=== PATIENT | female | born 1990 | race Hispanic/Latino ===

== ENCOUNTER 2024-09-19 19:52 | Day surgery (SDC) | payer OTHER ==
[2024-09-19] MEDS ORDERED: hydrALAZINE 20 MG/ML VIAL SLOW IVP PRN (20:49)
[2024-09-19] MEDS ORDERED: Lactated Ringer's 1,000 ML IV SCH (21:00)
[2024-09-19 21:35] LABS: Bilirubin Neg (Negative); Blood, Urine Negative (Negative); Clarity Clear (Clear); Glucose, Urine (Dipstick) Normal (Negative); Ketone, Urine Negative (Negative); Leukocyte Negative (Negative); Nitrite Negative (Negative); Protein, Urine (Dipstick) Negative (Neg-Trace); Urobilinogen Normal mg/dL (Less than 2); pH, Urine 6.5 (5.0-9.0)
[2024-09-19 21:57] LABS: CAUTI Indications for Culture Pregnancy; RBC/HPF None Seen HPF (0-3); Squamous Epithelial 0-3 HPF (0-3); WBC/HPF 0-3 HPF (0-3)
[2024-09-19 21:58] LABS: Bacteria/HPF Rare-Few HPF (None Seen)
[2024-09-19 22:11] VITALS: BMI 30.9
[2024-09-19] MEDS: Morphine 4 MG/ML VIAL SLOW IVP SCH (22:25)
== END 2024-09-19 23:45 | disposition home or self-care (01) ==
LOC: CSHLD/OP 19:52
PROVIDERS: ATTEND Family Medicine
DX: O99.891 Other specified diseases and conditions complicating pregnancy (principal); R10.9 Unspecified abdominal pain; R10.30 Lower abdominal pain, unspecified; R30.0 Dysuria; Z3A.24 24 weeks gestation of pregnancy; Z79.899 Other long term (current) drug therapy; Z53.21 Procedure and treatment not carried out due to patient leaving prior to being seen by health care provider
CPT/HCPCS: 76770; 81001; 87077; 87086; 96360; 99284; J2270

== ENCOUNTER 2024-11-20 17:41 | Day surgery (SDC) | payer OTHER ==
[2024-11-20] MEDS ORDERED: hydrALAZINE 20 MG/ML VIAL SLOW IVP PRN (18:47)
[2024-11-20 19:59] LABS: Bilirubin Neg (Negative); Blood, Urine Negative (Negative); Clarity Clear (Clear); Glucose, Urine (Dipstick) Normal (Negative); Ketone, Urine Negative (Negative); Leukocyte Negative (Negative); Nitrite Negative (Negative); Protein, Urine (Dipstick) 15 mg/dl (Neg-Trace)
[2024-11-20 20:23] LABS: Bacteria/HPF None Seen HPF (None Seen); CAUTI Indications for Culture Pregnancy; RBC/HPF None Seen HPF (0-3); Squamous Epithelial 0-3 HPF (0-3); WBC/HPF None Seen HPF (0-3)
[2024-11-20 20:24] LABS: Urine Culture Reflex Yes Yes
== END 2024-11-20 20:49 | disposition home or self-care (01) ==
LOC: CSHLD/OP 17:41
PROVIDERS: ATTEND Family Medicine
DX: O36.8130 Decreased fetal movements, third trimester, not applicable or unspecified (principal); O99.891 Other specified diseases and conditions complicating pregnancy; R10.30 Lower abdominal pain, unspecified; R03.0 Elevated blood-pressure reading, without diagnosis of hypertension; Z3A.33 33 weeks gestation of pregnancy; Z88.0 Allergy status to penicillin
CPT/HCPCS: 76819; 81001; 87086; 99283

== ENCOUNTER 2024-12-11 21:39 | Inpatient (IN) | payer OTHER ==
[2024-12-11 22:00] VITALS: BMI 25.0
[2024-12-11 22:26] LABS: Fetal Membranes Rupture RUPTURE DETECTED (No Rupture)
[2024-12-11] MEDS ORDERED: Tranexamic Acid 1,000 MG/10 ML VIAL IVP PRN (23:03)
[2024-12-11] MEDS ORDERED: Lidocaine 1% (PF) 30 ML VIAL SC PRN (23:03)
[2024-12-11] MEDS ORDERED: fentaNYL 50 mcg/mL 1 mL Vial SLOW IVP PRN (23:03)
[2024-12-11] MEDS ORDERED: Misoprostol 200 MCG TAB PR PRN (23:03)
[2024-12-11] MEDS ORDERED: Ibuprofen 800 MG TAB PO PRN (23:03)
[2024-12-11] MEDS ORDERED: Diphenoxylate HCl/Atropine Tablet PO PRN (23:03)
[2024-12-11] MEDS ORDERED: Promethazine HCl 25 MG/ML VIAL IM PRN (23:03)
[2024-12-11] MEDS ORDERED: Carboprost 250 MCG/ML AMP IM PRN (23:03)
[2024-12-11] MEDS ORDERED: HYDROcodone/Acetaminophen 5/325 mg Tablet PO PRN (23:03)
[2024-12-11] MEDS ORDERED: Oxytocin 30 units/NS 500 ML 500 ML IV SCH ×3 (23:15)
[2024-12-12 00:03] LABS: Hematocrit 34.2 % (34.9-44.5); Hemoglobin 11.7 g/dL (12.0-15.5); Mean Corpuscular HGB CONC 34.2 g/dL (32.0-36.0); Mean Corpuscular Hemoglobin 29.4 pg (27.0-33.0); Mean Corpuscular Volume 85.9 fL (81.6-98.3); Mean Platelet Volume 11.1 fL (7.4-10.4); Platelet Count 185 10x3/uL (150-450); RBC Distribution Width 11.7 % (11.5-14.5); Red Blood Cell (RBC) Count 3.98 10x6/uL (3.90-5.03); White Blood Cell (WBC) Count 11.16 10x3/uL (3.5-10.5)
[2024-12-12 00:20] LABS: ALT (SGPT) Less than 4 U/L (Less than 34); AST (SGOT) 14 U/L (11-34); Albumin 2.5 g/dL (3.1-4.5); Alkaline Phosphatase 175 U/L (40-110); Anion Gap 12 mmol/L (10-20); BUN (Urea Nitrogen) 11 mg/dL (7.0-18.7); Bilirubin, Total 0.2 mg/dL (0.3-1.2); Calc. Creatinine Clearance 169 mL/min (70-130); Calcium 8.2 mg/dL (7.8-10.44); Carbon Dioxide 17 mmol/L (22-29); Chloride 113 mmol/L (98-107); Estimated GFR 124; Globulin 3.4 g/dL (2.4-3.5); Glucose 89 mg/dL (70-105); Protein, Total 5.9 g/dL (6.0-8.3); Sodium 138 mmol/L (136-145)
[2024-12-12 00:38] LABS: Syphilis Antibody Nonreactive (Nonreactive); Syphilis Antibody Index 0.11 S/CO (<1.00 Non-Reactive)
[2024-12-12 00:39] LABS: HBsAg Index 0.16 S/CO (0-0.99); Hep B Surf Ag - L&D Non-Reactive S/CO (NonReactive)
[2024-12-12] MEDS: hydrALAZINE 20 MG/ML VIAL SLOW IVP PRN (00:45)
[2024-12-12] MEDS: Lactated Ringer's 1,000 ML IV SCH (00:46)
[2024-12-12] MEDS: Magnesium Sulfate 20 gm/500 ml 20 GM/500 ML BAG ONE (00:53)
[2024-12-12] MEDS ORDERED: Magnesium Sulfate 20 gm/500 ml 4 GM/100 ML BAG IVPB SCH (01:15)
[2024-12-12] MEDS ORDERED: hydrALAZINE 20 MG/ML VIAL SLOW IVP PRN ×2 (01:15)
[2024-12-12] MEDS ORDERED: Calcium Gluc 4.6 MEQ/10 ML (100 MG/ML) SLOW IVP PRN (01:15)
[2024-12-12] MEDS ORDERED: Labetalol HCl 100 MG/20 ML VIAL SLOW IVP PRN ×2 (01:15)
[2024-12-12] MEDS ORDERED: Lorazepam 2 MG/ML VIAL SLOW IVP PRN (01:15)
[2024-12-12] MEDS: Labetalol HCl 100 MG TAB PO SCH (01:55)
[2024-12-12] MEDS: Misoprostol 100 MCG TAB PO SCH (01:56)
[2024-12-12] MEDS: Magnesium Sulfate 20 gm/500 ml 20 GM/500 ML BAG IVPB SCH (09:17)
[2024-12-12] MEDS: Ondansetron PF 4 MG/2 ML Vial IVP PRN (09:36)
[2024-12-12] MEDS: Acetaminophen 500 MG TAB PO PRN (09:43)
[2024-12-12] MEDS ORDERED: Clindamycin/D5W 900 MG in Premix 1 BAG IVPB SCH (17:30)
[2024-12-12] MEDS ORDERED: Famotidine/PF 20 mg/2ml Vial SLOW IVP PRN (17:30)
[2024-12-12] MEDS ORDERED: Azithromycin 500 MG in Sodium Chloride 0.9% 250 ML 250 ML IVPB SCH (17:30)
[2024-12-12] MEDS ORDERED: Bicitra 30 ML UDCUP PO PRN (17:30)
[2024-12-12] MEDS ORDERED: Moisturizing Cream (Eucerin) 113 GM JAR TOP PRN (19:00)
[2024-12-12] MEDS ORDERED: fentaNYL 50 mcg/mL 1 mL Vial SLOW IVP PRN (19:00)
[2024-12-12] MEDS ORDERED: diphenhydrAMINE 50 MG/ML VIAL IVP PRN (19:00)
[2024-12-12] MEDS ORDERED: Naloxone HCl 0.4 mg/ml Vial IVP PRN ×2 (19:00)
[2024-12-12] MEDS ORDERED: Promethazine HCl 25 MG/ML VIAL IM PRN (19:00)
[2024-12-12] MEDS ORDERED: Morphine 4 MG/ML VIAL SLOW IVP PRN (19:00)
[2024-12-12] MEDS ORDERED: Ketorolac Tromethamine 30 MG (1 mL) VIAL IVP SCH (19:00)
[2024-12-12] MEDS ORDERED: Naloxone HCl 0.4 mg/ml Vial IV PRN (19:00)
[2024-12-12] MEDS ORDERED: Communication Order-Pharmacy FS SCH (19:00)
[2024-12-12] MEDS ORDERED: Ondansetron PF 4 MG/2 ML Vial IVP PRN ×2 (19:00)
[2024-12-12] MEDS ORDERED: Meperidine HCl/PF 25 MG (1 mL) VIAL SLOW IVP PRN (19:00)
[2024-12-13] MEDS: Ketorolac Tromethamine 30 MG (1 mL) VIAL IVP PRN (01:56)
[2024-12-13] MEDS ORDERED: Morphine 4 MG/ML VIAL SLOW IVP PRN (04:30)
[2024-12-13] MEDS ORDERED: Fentanyl 100 MCG/2 ML VIAL SLOW IVP PRN (04:42)
[2024-12-13] MEDS: Fentanyl 100 MCG/2 ML VIAL ONE (04:43)
[2024-12-13] MEDS ORDERED: Promethazine HCl 25 MG/ML VIAL IM PRN (04:55)
[2024-12-13] MEDS ORDERED: Ondansetron PF 4 MG/2 ML Vial IVP PRN (04:55)
[2024-12-13] MEDS ORDERED: Calcium Gluc 4.6 MEQ/10 ML (100 MG/ML) SLOW IVP PRN (04:55)
[2024-12-13] MEDS ORDERED: Lorazepam 2 MG/ML VIAL SLOW IVP PRN (04:55)
[2024-12-13] MEDS ORDERED: hydrALAZINE 20 MG/ML VIAL SLOW IVP PRN ×2 (04:55)
[2024-12-13] MEDS ORDERED: Lanolin Ointment 7 GM TUBE TOP PRN (04:55)
[2024-12-13] MEDS ORDERED: diphenhydrAMINE 25 MG CAP PO PRN (04:55)
[2024-12-13] MEDS ORDERED: Labetalol HCl 100 MG/20 ML VIAL SLOW IVP PRN (04:55)
[2024-12-13] MEDS ORDERED: Bisacodyl 10 MG SUPP PR PRN (04:55)
[2024-12-13] MEDS ORDERED: Boostrix 0.5 ML (Tdap) VIAL (>/=7 yrs of age) IM ONE (04:55)
[2024-12-13 05:47] LABS: Critical Call Chemistry NUR.LHA@0545/JG2/READBACK; Magnesium 8.1 mg/dL (1.6-2.6)
[2024-12-13] MEDS: ePHEDrine Sulfate 50 MG/10 ML VIAL ONE (09:15)
[2024-12-13] MEDS: PHENYLEPHRINE-NS 100 MCG/ML 10 ML SYRINGE ONE (09:16)
[2024-12-13] MEDS: Oxytocin 10 UNITS/ML VIAL ONE (09:16)
[2024-12-13] MEDS: Ondansetron PF 4 MG/2 ML Vial ONE (09:16)
[2024-12-13] MEDS: Morphine PF 10 MG/10 ML VIAL ONE (09:16)
[2024-12-13] MEDS: Gentamicin Sulfate 80 MG in Premix 1 BAG IVPB SCH (09:16)
[2024-12-13] MEDS: Ketorolac Tromethamine 30 MG (1 mL) VIAL ONE (09:16)
[2024-12-13] MEDS: Phytonadione Neonatal 1 MG/0.5 ML AMP ONE (09:17)
[2024-12-13] MEDS: Erythromycin Base 0.5% Oint 1 GM TUBE ONE (09:17)
[2024-12-13] MEDS: Promethazine HCl 25 MG/ML VIAL ONE (09:17)
[2024-12-13] MEDS: Prenatal Vitamin 1 TAB PO SCH (10:14)
[2024-12-13] MEDS: Docusate 100 MG CAP PO SCH (10:14)
[2024-12-13] MEDS: Ferrous Sulfate 325 MG TAB PO SCH (10:14)
[2024-12-13 14:38] LABS: Group B Streptococcus by PCR Not Detected (NotDetected)
[2024-12-13] MEDS: HYDROcodone/Acetaminophen 5/325 mg Tablet PO PRN (20:00)
[2024-12-14] MEDS: Ibuprofen 800 MG TAB PO SCH (03:35)
[2024-12-14 05:39] LABS: Hemoglobin 9.8 g/dL (12.0-15.5); Mean Corpuscular HGB CONC 33.8 g/dL (32.0-36.0); Mean Corpuscular Hemoglobin 29.7 pg (27.0-33.0); Mean Corpuscular Volume 87.9 fL (81.6-98.3); Mean Platelet Volume 9.8 fL (7.4-10.4); Platelet Count 192 10x3/uL (150-450); RBC Distribution Width 12.3 % (11.5-14.5); White Blood Cell (WBC) Count 7.85 10x3/uL (3.5-10.5)
[2024-12-14] MEDS: Simethicone Chewable 80 MG TAB PO PRN (08:31)
[2024-12-14] MEDS: Hepatitis B Vaccine 10 MCG/0.5 ML SYR ONE (19:29)
[2024-12-15] MEDS: HYDROcodone/Acetaminophen 5/325 mg Tablet PO PRN (12:19)
[2024-12-16 16:45] VITALS: BP 124/72; TEMP 98.3
== END 2024-12-16 17:50 | disposition home or self-care (01) | DRG 788 ==
LOC: CSHLD/OP 21:39 → CSHLD 23:03 → CSHPP 12-13 08:42
PROVIDERS: ADMIT Family Medicine; ATTEND Family Medicine
PROC: 10D00Z1 Extraction of Products of Conception, Low, Open Approach (ICD-10-PCS; principal; 2024-12-12)
PROC: 3E0DXGC Introduction of Other Therapeutic Substance into Mouth and Pharynx, External Approach (ICD-10-PCS; 2024-12-12)
DX: O42.013 Preterm premature rupture of membranes, onset of labor within 24 hours of rupture, third trimester (principal); O14.14 Severe pre-eclampsia complicating childbirth; Z88.0 Allergy status to penicillin; Z37.0 Single live birth; Z3A.36 36 weeks gestation of pregnancy
CPT/HCPCS: 36415; 51702; 80053; 82570; 83735; 84112; 84156; 85027; 86780; 86850; 86900; 86901; 87340; 87653; 99285; C1889; J0360; J1885; J2274; J2405; J2550; J2590; J3010; J3475; J7120